=== PATIENT | male | born 1985 | race African-American/Black ===

== ENCOUNTER 2017-09-27 18:30 | Emergency (ER) | payer MEDICARE, MEDICAID ==
--- NOTE | 2017-09-27 20:10 | ER Document Report ---
ED Medical Screen (RME) - General Chief Complaint: Rectal Bleeding Stated Complaint: RECTAL BLEEDING Time Seen by Provider: 09/27/17 20:05 Notes: 32-year-old male presents to the ER with rectal bleeding. Patient was not going to the bathroom and they noticed blood running down his leg. The patient denies any rectal pain denies any abdominal pain. He denies any injury. The patient stated he is never had hemorrhoids before his mother is present with him. He denies any chest pain or shortness of breath denies dizziness. TRAVEL OUTSIDE OF THE [place] IN LAST 30 DAYS: No - Related Data Allergies/Adverse Reactions: No Known Allergies Allergy (Verified 09/16/15 09:20) Past Medical History - Past Medical History Cardiac Medical History: Reports: Hx Hypertension Denies: Hx Coronary Artery Disease, Hx Heart Attack Pulmonary Medical History: Denies: Hx Asthma, Hx Bronchitis, Hx COPD, Hx Pneumonia Neurological Medical History: Denies: Hx Cerebrovascular Accident, Hx Seizures Musculoskeltal Medical History: Denies Hx Arthritis Past Surgical History: Denies: Hx Pacemaker - Immunizations Hx Diphtheria, Pertussis, Tetanus Vaccination: Yes Physical Exam - Vital signs Vitals: Temp Pulse Resp BP Pulse Ox 98.4 F 109 H 18 151/106 H 96 09/27/17 18:37 09/27/17 18:37 09/27/17 18:37 09/27/17 18:37 09/27/17 18:37 - Notes Notes: Abdomen is soft and supple. Unfortunately triage is not a good area to take the patient's pants off and do a complete rectal exam. Course - Re-evaluation Re-evalutation: 09/27/17 20:09 The patient presents with rectal bleeding. We will check his hemoglobin and coags. When we get him back in her room we will be able to do a full rectal exam. He has no history of hemorrhoids and denies any pain or anything that you would expect from a thrombosed hemorrhoid. He denies any significant constipation or anything that would cause a fissure. - Vital Signs Vital signs: Temp Pulse Resp BP Pulse Ox 98.4 F 109 H 18 151/106 H 96 09/27/17 18:37 09/27/17 18:37 09/27/17 18:37 09/27/17 18:37 09/27/17 18:37 Doctor's Discharge - Discharge Referrals: AKIRA LUIS MD [Primary Care Provider] - Follow up as needed
[2017-09-27 22:15] LABS: ABSOLUTE EOSINOPHILS # (AUTO) 0.3 10^3/uL (0.0-0.6); ABSOLUTE LYMPHOCYTES (AUTO) 2.5 10^3/uL (0.5-4.7); ABSOLUTE MONOCYTES (AUTO) 0.9 10^3/uL (0.1-1.4); ABSOLUTE NEUT (AUTO) 4.3 10^3/uL (1.7-8.2); BASOPHILS % (AUTO) 0.5 % (0-2); EOSINOPHILS % (AUTO) 4.2 % (0-6); HEMATOCRIT 46.6 % (37.9-51.0); HEMOGLOBIN 15.5 g/dL (13.5-17.0); LYMPHOCYTES % (AUTO) 30.7 % (13-45); MEAN CORPUSCULAR HEMOGLOBIN 27.1 pg (27.0-33.4); MEAN CORPUSCULAR HGB CONC 33.3 g/dL (32.0-36.0); MEAN CORPUSCULAR VOLUME 82 fl (80-97); MONOCYTES % (AUTO) 11.1 % (3-13); PLATELET COUNT 228 10^3/uL (150-450); RED BLOOD COUNT 5.71 10^6/uL (4.35-5.55); RED CELL DISTRIBUTION WIDTH 15.2 % (11.5-14.0); SEGMENTED NEUTROPHILS % (AUTO) 53.5 % (42-78); TOTAL CELLS COUNTED % (AUTO) 100 %
[2017-09-27 22:20] LABS: INTERNATIONAL RATION (INR) 0.95; PROTHROMBIN TIME 13.2 SEC (11.4-15.4)
[2017-09-27 22:21] LABS: PARTIAL THROMBOPLASTIN TIME 29.8 SEC (23.5-35.8)
[2017-09-27 22:36] LABS: ALANINE AMINOTRANSFERASE 54 U/L (21-72); ALBUMIN 4.2 g/dL (3.5-5.0); ALKALINE PHOSPHATASE 67 U/L (38-126); ANION GAP 13 (5-19); ASPARTATE AMINO TRANSFERASE 23 U/L (17-59); BILIRUBIN,DIRECT 0.2 mg/dL (0.0-0.4); BILIRUBIN,TOTAL 0.6 mg/dL (0.2-1.3); BLOOD UREA NITROGEN 9 mg/dL (7-20); CALCIUM 9.2 mg/dL (8.4-10.2); CARBON DIOXIDE 28 mmol/L (22-30); CHLORIDE 102 mmol/L (98-107); GLUCOSE 86 mg/dL (75-110); POTASSIUM 4.3 mmol/L (3.6-5.0); SODIUM 143.1 mmol/L (137-145); TOTAL PROTEIN 8.3 g/dL (6.3-8.2)
[2017-09-27] MEDS ORDERED: FLUCONAZOLE 100 MG TABLET PO ONE (23:08)
--- NOTE | 2017-09-27 23:08 | ER Document Report ---
ED GI Bleed / Rectal Pain - General Chief Complaint: Rectal Bleeding Stated Complaint: RECTAL BLEEDING Time Seen by Provider: 09/27/17 20:05 Notes: Patient is a 32-year-old male comes emergency department for chief complaint of rectal bleeding. He states that after bowel movement he saw some blood running down his leg and he became concerned. He has intermittently seen bright red blood in his stool in the past, he started seeing again today. He admits that he is "constipated", has not had a normal bowel movement in several days, last bowel movement before today was hard. He states he was supposed to be seen about 2 weeks ago by gastroenterology but he gastroneurologist was not the office that he saw his primary care instead. He did have a colonoscopy in the past and had polyps removed. No other abnormalities on colonoscopy per patient. He is not on blood thinner. Only past medical history is obesity and hypertension for which she is medicated. Patient denies any current symptoms. TRAVEL OUTSIDE OF THE [place] IN LAST 30 DAYS: No - Related Data Allergies/Adverse Reactions: No Known Allergies Allergy (Verified 09/16/15 09:20) Past Medical History - General Information source: Patient - Social History Smoking Status: Never Smoker Frequency of alcohol use: None Drug Abuse: None Lives with: Family Family History: Reviewed & Not Pertinent Patient has suicidal ideation: No Patient has homicidal ideation: No - Past Medical History Cardiac Medical History: Reports: Hx Hypertension Denies: Hx Coronary Artery Disease, Hx Heart Attack Pulmonary Medical History: Denies: Hx Asthma, Hx Bronchitis, Hx COPD, Hx Pneumonia Neurological Medical History: Denies: Hx Cerebrovascular Accident, Hx Seizures Renal/ Medical History: Denies: Hx Peritoneal Dialysis Musculoskeletal Medical History: Denies Hx Arthritis Past Surgical History: Denies: Hx Pacemaker - Immunizations Hx Diphtheria, Pertussis, Tetanus Vaccination: Yes Review of Systems - Review of Systems Constitutional: No symptoms reported EENT: No symptoms reported Cardiovascular: See HPI Respiratory: No symptoms reported Gastrointestinal: See HPI Genitourinary: No symptoms reported Male Genitourinary: No symptoms reported Musculoskeletal: No symptoms reported Skin: No symptoms reported Hematologic/Lymphatic: No symptoms reported Neurological/Psychological: No symptoms reported Physical Exam - Vital signs Vitals: Temp Pulse Resp BP Pulse Ox 98.4 F 109 H 18 151/106 H 96 09/27/17 18:37 09/27/17 18:37 09/27/17 18:37 09/27/17 18:37 09/27/17 18:37 - Notes Notes: GENERAL: Alert, interacts well. No acute distress. Morbidly obese. HEAD: Normocephalic, atraumatic. EYES: Pupils equal, round, and reactive to light. Extraocular movements intact. ENT: Oral mucosa moist, tongue midline. NECK: Full range of motion. Supple. Trachea midline. LUNGS: Clear to auscultation bilaterally, no wheezes, rales, or rhonchi. No respiratory distress. HEART: Regular rate and rhythm. No murmur ABDOMEN: Soft, non-tender. Non-distended. Bowel sounds present in all 4 quadrants. RECTAL: Internal hemorrhoid located at approximately 4 o'clock position, brown stool, no fissure, no other abnormality. Angela present at bedside during exam. EXTREMITIES: Moves all 4 extremities spontaneously. No edema, normal radial and dorsalis pedis pulses bilaterally. No cyanosis. BACK: no cervical, thoracic, lumbar midline tenderness. No saddle anesthesia, normal distal neurovascular exam. NEUROLOGICAL: Alert and oriented x3. Normal speech. [cranial nerves II through XII grossly intact]. PSYCH: Normal affect, normal mood. SKIN: Warm, dry, normal turgor. No rashes or lesions noted. Course - Re-evaluation Re-evalutation: Patient well-appearing, alert, no signs of distress. Soft abdomen. Initial mild tachycardia and hypertension, this was rechecked and was normal. Physical examination shows no gross bloody stools, only brown stools. Hemoccult positive. Patient with an internal hemorrhoid on exam, no fissures, no external hemorrhoids, nonthrombosed hemorrhoids, no other concerning abnormalities. Patient asymptomatic. CBC, regulation studies, chemistry reviewed and unremarkable. Patient has what appears to be inguinal and perineal yeast infection which is mild. Given Diflucan. Discussed hygiene. Patient with no current gross bloody stools, appears to be bleeding from an internal hemorrhoid, discussed this with patient, discussed recommendations, treatment, follow-up, and return precautions. Patient states understanding and agreement. - Vital Signs Vital signs: Temp Pulse Resp BP Pulse Ox 98.4 F 86 16 127/80 H 97 09/27/17 23:21 09/27/17 23:21 09/27/17 23:21 09/27/17 23:21 09/27/17 23:21 - Laboratory Result Diagrams: 09/27/17 21:00 09/27/17 21:00 Laboratory results interpreted by me: 09/27/17 09/27/17 21:00 21:00 RBC 5.71 H RDW 15.2 H Total Protein 8.3 H Discharge - Discharge Clinical Impression: Blood in stool, Skin rash Condition: Stable Disposition: HOME, SELF-CARE Additional Instructions: Your blood counts do not show any concerning abnormality. Your examination indicates internal hemorrhoid, this is probably the source of your bleeding. This can be worsened by constipation which she has been having. Take the stool softener as prescribed, avoid any straining or extended stay on the toilet. This should resolve. Please follow-up with gastroenterology for additional evaluation and management because of ongoing problems with blood in stool. See referral, call for your appointment. Small amount of yeast noted on evaluation, you were treated for this today, keep groin and buttock areas clean and dry. Return if you worsen including heavy bleeding, passing out, abdominal pain, fever, or any other concerning or worsening symptoms. Prescriptions: Docusate Sodium [Colace 100 mg Capsule] 100 mg PO ASDIR PRN #30 capsule PRN Reason: Referrals: KASSIDY WIGGINS MD [ACTIVE STAFF] - Follow up in 1 week
[2017-09-27 23:22] VITALS: BP 127/80
== END 2017-09-27 23:21 | disposition home or self-care (01) ==
LOC: ER 18:30
DX: R19.5 Other fecal abnormalities (principal); R21 Rash and other nonspecific skin eruption; K59.00 Constipation, unspecified; K64.8 Other hemorrhoids; E66.01 Morbid (severe) obesity due to excess calories; Z68.44 Body mass index [BMI] 60.0-69.9, adult; I10 Essential (primary) hypertension; Z79.899 Other long term (current) drug therapy
CPT/HCPCS: 99283; 36415; 85025; 85610; 85730; 82272; 80053; A9270

== ENCOUNTER 2017-11-09 14:37 | Day surgery (SDC) | payer MEDICARE, MEDICAID ==
--- NOTE | 2017-10-25 10:15 | RADIOLOGY REPORT (SQ) ---
EXAM DESCRIPTION: CHEST PA/LATERAL COMPLETED DATE/TIME: 10/25/2017 10:06 am REASON FOR STUDY: PRE-OP COMPARISON: September 2011 EXAM PARAMETERS: NUMBER OF VIEWS: two views TECHNIQUE: Digital Frontal and Lateral radiographic views of the chest acquired. RADIATION DOSE: NA LIMITATIONS: Study is limited somewhat due to the patient's body habitus. FINDINGS: LUNGS AND PLEURA: No opacities, masses or pneumothorax. No pleural effusion. MEDIASTINUM AND HILAR STRUCTURES: No masses or contour abnormalities. HEART AND VASCULAR STRUCTURES: Heart normal size. No evidence for failure. BONES: No acute findings. HARDWARE: None in the chest. OTHER: No other significant finding. IMPRESSION: NO SIGNIFICANT RADIOGRAPHIC FINDING IN THE CHEST. TECHNICAL DOCUMENTATION: JOB ID: [id number] [employer]- All Rights Reserved Reading location - IP/workstation name: [email or web address]
[2017-10-25 10:31] LABS: HEMOGLOBIN 15.5 g/dL (13.5-17.0); MEAN CORPUSCULAR HEMOGLOBIN 26.7 pg (27.0-33.4); MEAN CORPUSCULAR HGB CONC 32.9 g/dL (32.0-36.0); MEAN CORPUSCULAR VOLUME 81 fl (80-97); PLATELET COUNT 208 10^3/uL (150-450); RED BLOOD COUNT 5.79 10^6/uL (4.35-5.55); RED CELL DISTRIBUTION WIDTH 15.2 % (11.5-14.0); WHITE BLOOD COUNT 6.2 10^3/uL (4.0-10.5)
[2017-10-25 10:55] LABS: ALANINE AMINOTRANSFERASE 45 U/L (21-72); ALBUMIN 4.2 g/dL (3.5-5.0); ALKALINE PHOSPHATASE 64 U/L (38-126); ANION GAP 7 (5-19); ASPARTATE AMINO TRANSFERASE 24 U/L (17-59); BILIRUBIN,DIRECT 0.2 mg/dL (0.0-0.4); BILIRUBIN,TOTAL 0.6 mg/dL (0.2-1.3); BLOOD UREA NITROGEN 12 mg/dL (7-20); CALCIUM 9.3 mg/dL (8.4-10.2); CARBON DIOXIDE 30 mmol/L (22-30); CHLORIDE 103 mmol/L (98-107); GLUCOSE 81 mg/dL (75-110); POTASSIUM 4.3 mmol/L (3.6-5.0); SODIUM 140.1 mmol/L (137-145)
--- NOTE | 2017-10-25 22:58 | EKG REPORT ---
SEVERITY:- NORMAL ECG - SINUS RHYTHM : Confirmed by: Judi Rogers 25-Oct-2017 22:57:38
[~2017-11-09 14:37] MED LIST: LACTATED RINGERS 1000 ML IV PRN; LIDOCAINE 0.5% INJ-PF (5 MG/ML) 50 ML SDV SUBCUT PRN
[2017-11-09] MEDS ORDERED: FAMOTIDINE INJ/PF 20 MG/2 ML SDV IV ONE ×2 (15:30→15:50)
[2017-11-09] MEDS ORDERED: RINGERS SOLUTION,LACTATED 500 ML IV ONE (15:30)
[2017-11-09] MEDS ORDERED: LIDOCAINE 2% INJ-PF (20 MG/ML) 10 ML AMPUL ONE (18:35)
[2017-11-09] MEDS ORDERED: FENTANYL CITRATE INJ/PF 100 MCG/2 ML AMPUL ONE ×2 (18:35→19:38)
[2017-11-09] MEDS ORDERED: MIDAZOLAM 2 MG/2 ML INJ ONE (18:35)
[2017-11-09] MEDS ORDERED: PROPOFOL INJ 200 MG/20 ML VIAL IV ONE (18:36)
[2017-11-09] MEDS ORDERED: LIDOCAINE 2% JELLY 30 ML TUBE ONE (18:40)
[2017-11-09] MEDS ORDERED: ONDANSETRON HCL INJ/PF 4 MG/2 ML SDV IV PRN (19:14)
[2017-11-09] MEDS ORDERED: DIPHENHYDRAMINE HCL 50 MG/ML VIAL IV PRN (19:14)
[2017-11-09] MEDS ORDERED: PROMETHAZINE HCL INJ 25 MG/1 ML VIAL IV PRN ×2 (19:14)
[2017-11-09] MEDS ORDERED: FENTANYL CITRATE INJ/PF 100 MCG/2 ML AMPUL IV PRN ×3 (19:14)
[2017-11-09 22:17] VITALS: BP 141/88
--- NOTE | 2017-11-10 11:54 | Discharge Summary ---
Discharge Summary (SDC) - Discharge Final Diagnosis: Bleeding internal hemorrhoids. Date of Surgery: 11/09/17 Discharge Date: 11/09/17 Condition: Good Forms: Discharge POC-Adult Referrals: MICHELLE WALKER DO [Primary Care Provider] - Discharge Diet: As Tolerated Respiratory Treatments at Home: Deep Breathing/Coughing, Incentive Spirometer Discharge Activity: Balance Activity w/Rest Home Care Assistance: None Needed Report the Following to Your Physician Immediately: Shortness of Breath, Nausea , Vomiting, Increase in Pain, Signs of Hyperglycemia, Signs of Hypoglycemia, Fever over 101 Degrees, Unusual Bleeding, Redness, Swelling, Warmth, Increased Soreness, Drainage-Yellow, Drainage-Green, Drainage-Foul Smelling
--- NOTE | 2017-11-10 11:58 | Operative Report ---
Nonrecallable Operative Report DATE OF SURGERY: 11/09/17 PREOPERATIVE DIAGNOSIS: Bleeding internal hemorrhoids POSTOPERATIVE DIAGNOSIS: Same as above OPERATION: Rubber band ligation of internal hemorrhoids x3 SURGEON: SANDER GAVRIN TISSUE REMOVED OR ALTERED: None COMPLICATIONS: None apparent ESTIMATED BLOOD LOSS: Minimal PROCEDURE: Drains/implants: None. Procedure in detail: After informed consent was obtained, the patient was brought into the operating room and laid in the left lateral decubitus position. After adequate anesthesia was obtained, the anoscope was inserted into the rectum. Enlarged hemorrhoids were found in the internal position at the right anterior, right posterior, and left lateral columns. Rubber bands were used to ligate hemorrhoids in all 3 columns. The endoscope was removed, and the procedure was concluded. All sponge, instrument, needle counts were correct. Condition: Stable.
== END 2017-11-09 22:30 | disposition home or self-care (01) ==
LOC: OROUT 14:37 → 2S 20:31 → OROUT 22:30
PROVIDERS: ATTEND Surgery
DX: K64.8 Other hemorrhoids (principal); I10 Essential (primary) hypertension; E66.01 Morbid (severe) obesity due to excess calories; G47.33 Obstructive sleep apnea (adult) (pediatric); E55.9 Vitamin D deficiency, unspecified; Z68.44 Body mass index [BMI] 60.0-69.9, adult; Q87.89 Other specified congenital malformation syndromes, not elsewhere classified; Z79.899 Other long term (current) drug therapy; Q99.2 Fragile X chromosome
CPT/HCPCS: 93005; 36415; 85027; 80053; 71046; 93010; 46221; J2250; J3010; J2704; S0028; J3490; 902